=== PATIENT | female | born 1955 | race American Indian/Alaskan Native ===

== ENCOUNTER 2017-12-06 08:38 | Day surgery (SDC) | payer OTHER ==
[2017-12-05 09:41] LABS: Basophils % (Auto) 0.4 % (0.0-1.8); Eosinophils % (Auto) 0.8 % (0.0-4.3); Hematocrit 35.4 % (30.3-42.9); Hemoglobin 11.9 gm/dl (10.1-14.3); Lymphocytes # (Auto) 2.2 K/mm3 (1.2-5.4); Lymphocytes % (Auto) 44.8 % (13.4-35.0); Mean Corpuscular HGB Conc 34 % (30-34); Mean Corpuscular Hemoglobin 28 pg (28-32); Mean Corpuscular Volume 83 fl (79-97); Monocytes # (Auto) 0.5 K/mm3 (0.0-0.8); Monocytes % (Auto) 10.7 % (0.0-7.3); Platelet Count 251 K/mm3 (140-440); Red Blood Count 4.27 M/mm3 (3.65-5.03); Red Cell Distribution Width 14.3 % (13.2-15.2)
--- NOTE | 2017-12-05 09:46 | Anesthesia Consultation ---
Anesthesia Consult and Med Hx Date of service: 12/06/17 - Airway Anesthetic Teeth Evaluation: Good ROM Head & Neck: Adequate Mental/Hyoid Distance: Adequate Mallampati Class: Class II Intubation Access Assessment: Probably Good - Pulmonary Exam CTA: Yes - Cardiac Exam Cardiac Exam: RRR - Pre-Operative Health Status ASA Pre-Surgery Classification: ASA2 Proposed Anesthetic Plan: General - Cardiovascular System Hx Hypertension: Yes (x 5-6 yrs) Hx Heart Murmur: Yes - Central Nervous System Hx Psychiatric Problems: No - Other Systems Hx Cancer: No Hx Obesity: Yes - Additional Comments Anesthesia Medical History Comments: Preop assesment done and consent obtained by Dr. Simmons
[2017-12-05 09:54] LABS: BUN/Creatinine Ratio 16; Blood Urea Nitrogen 13 mg/dL (7-17); Calcium 9.5 mg/dL (8.4-10.2); Hemolysis Index 6
--- NOTE | 2017-12-05 17:54 | History and Physical Report ---
History of Present Illness Date of examination: 12/02/17 Chief complaint: Abnormal finding on imaging of genitourinary tract History of present illness: Past History : 1 Term Births: 1 Living Children: 1 # 1 Delivery date: 1985 Delivery type: weight: 9-2 [employer] History Operations: [employer] Surgery:ovarian cystectomy(L) umbilical hernia repair 2005 Abnormal PAP: negative Infection History HIV Risk Eval: no Hx of STD: None Active Medications (reviewed today): TRAVATAN Z SOLUTION (TRAVOPROST SOLN) CO Q 10 CAPSULE (COENZYME Q10 CAPS) EVENING PRIMROSE OIL CAPSULE (EVENING PRIMROSE OIL CAPS) CALCIUM 600+D PLUS MINERALS TABLET (CALCIUM CARBONATE-VIT D-MIN TABS) HYDROCHLOROTHIAZIDE 25 MG ORAL TABLET (HYDROCHLOROTHIAZIDE) 1 po qd CRESTOR 10 MG ORAL TABLET (ROSUVASTATIN CALCIUM) ZYRTEC ALLERGY TABLET (CETIRIZINE HCL TABS) MULTIVITAMIN ADULT ORAL TABLET CHEWABLE (MULTIPLE VITAMINS-MINERALS) Current Allergies (reviewed today): No known allergies Past Medical History: Reviewed history from 06/10/2017 and no changes required: Hyperlipidemia Hypertension glaucoma osteopenia Diffuse Cystic mastopathy (B) Dr. Marie Past Surgical History: Reviewed history from 04/17/2010 and no changes required: [employer] Surgery:ovarian cystectomy(L) umbilical hernia repair 2005 Family History Summary: Reviewed history Last on 06/10/2017 and no changes required:12/05/2017 Aunt - Has Family History Breast Cancer - maternal - Entered On: 09/01/2016 Aunt - Has Family History of Endometrial Cancer - maternal, different aunt - Entered On: 09/01/2016 Cousin (female) - Has Family History of Small Bowel Cancer - Entered On: 2015 Other family member - Has No Family History of Biliary Tract Cancer - Entered On : 09/01/2016 Other family member - Has No Family History of Brain Cancer - Entered On: 2015 Other family member - Has No Family History of Colon Cancer - Entered On: 2015 Other family member - Has No Family History of DVT/PE on OCP - Entered On: 09/01 Other family member - Has No Family History of Kidney/Urinary Tract Cancer - Entered On: 09/01/2016 Other family member - Has No Family History of Ovarvian Cancer - Entered On: Other family member - Has No Family History of Pancreatic Cancer - Entered On: 09/01/2016 Other family member - Has No Family History of Stomach Cancer - Entered On: General Comments - FH: Family History Breast Cancer Maternal aunt menopause, Cousin w/ small bowel cancer No Family History of Ovarian Cancer Maternal aunt endometrial cancer, different sister, menopause Social History: Reviewed history from 06/10/2017 and no changes required: Patient is Smoking History: Patient has never smoked. Risk Factors: Mammogram History: Date of Last Mammogram: 08/21/2016 PAP Smear History: Date of Last PAP Smear: 06/10/2017 Previous Tobacco Use: Signed On - 08/26/2017 Smoked Tobacco Use: Never smoker Smokeless Tobacco Use: Never Passive smoke exposure: no Drug use: no HIV high-risk behavior: no Previous Alcohol Use: Signed On - 08/26/2017 Alcohol use: no Exercise: no Seatbelt use: 100 % Colonoscopy History: Date of Last Colonoscopy: 08/19/2006 Mammogram History: Date of Last Mammogram: 08/21/2016 PAP Smear History: Date of Last PAP Smear: 06/10/2017 Review of Systems General Denies fever, chills, sweats, anorexia, fatigue, weakness, malaise, weight loss and sleep disorder. Denies vaginal discharge, incontinence, dysuria, hematuria, urinary frequency, amenorrhea, menorrhagia, abnormal vaginal bleeding, pelvic pain, genital sores, decreased libido, painful periods, painful sex, urinary urgency, hot flashes, vaginal dryness, vaginal itching and vaginal odor. CV Denies chest pains, palpitations, syncope, dyspnea on exertion, orthopnea, PND and peripheral edema. Resp Denies cough, dyspnea at rest, excessive sputum, hemoptysis, wheezing and pleurisy. GI Denies nausea, vomiting, diarrhea, constipation, change in bowel habits, abdominal pain, melena, hematochezia, jaundice, gas/bloating, indigestion/ heartburn, dysphagia and odynophagia. Endo Denies cold intolerance, heat intolerance, polydipsia, polyphagia, polyuria and unusual weight change. Breast Denies left breast lump, right breast lump, nipple discharge, bloody discharge from nipple, breast pain, abnormal mammogram and breast enlargement. MS Denies back pain, joint pain, joint swelling, muscle cramps, muscle weakness, stiffness, arthritis, sciatica, restless legs, leg pain at night and leg pain with exertion. Derm Denies rash, itching, dryness and suspicious lesions. Neuro Denies paralysis, paresthesias, headache, seizures, tremors, vertigo, transient blindness, frequent falls, frequent headaches and difficulty walking. Psych Denies depression, anxiety, irritability and mood swings. Eyes Denies blurring, diplopia, irritation, discharge, vision loss, eye pain and photophobia. ENT Denies earache, ear discharge, tinnitus, decreased hearing, nasal congestion, nosebleeds, sore throat and hoarseness. Allergy Denies urticaria, allergic rash, hay fever and recurrent infections. Heme Denies abnormal bruising, bleeding and enlarged lymph nodes. Physical Exam Appearance: well developed, well nourished, no acute distress Other Exams Lungs: no rales, rhonchi, or wheezes Heart: S1, S2, no murmur, rub, or gallop Abdomen: soft, non-tender, no masses Skin: no ulcers, xanthomas Extremities: normal alignment, no joint enlargement, crepitus, masses or tenderness; normal tone and strength Genitourinary Exam Vagina: atrophic vaginitis Cervix: normal appearance, no lesions, no discharge Uterus: normal position, midline, mobile Adnexa: no masses or tenderness Impression & Recommendations: Problem # 1: Imaging of genitourinary system abnormal (ICD-793.5) (DVR66-C49.8) Patient has been reassured that the findings on US and EMB are benign however she persists in wanting to have the area further evaluation therefore desires to proceed with hysteroscopy with D&C and other indicated procedures Consent reviewed and signed . Possible laparoscopy or laparotomy explained to patient. The risks and alternatives for this surgery were reviewed with the patient. She was informed of possible bleeding, infection, injury to bowel, bladder, ureters or other adjacent organs. The patient was instructed/informed the following: The normal length of hospital stay for this procedure. Nothing to eat or drink after midnight the evening prior to surgery. Clear liquids for dinner the night prior to surgery Pre-op instruction sheets given. Wound care instructions given. Infection precautions reviewed, patient to call for any signs or symptoms of infection. The usual discomforts associated with this procedure were detailed. Proper use of pain medicines was reviewed. Patient was given ample opportunity to have all her questions answered before signing informed consent. Medications and Allergies Allergies Allergy/AdvReac Type Severity Reaction Status Date / Time No Known Allergies Allergy Unverified 12/02/17 11:40 Home Medications Medication Instructions Recorded Confirmed Last Taken Type Cetirizine HCl [Zyrtec] 10 mg PO DAILY 12/02/17 12/02/17 Unknown History Hydrochlorothiazide [HCTZ] 25 mg PO DAILY 12/02/17 12/02/17 Unknown History Rosuvastatin (Nf) [Crestor] 10 mg PO QHS 12/02/17 12/02/17 Unknown History Active Meds: Active Medications Cefazolin Sodium (Ancef/Sterile Water 2 Gm/20 Ml) 2 gm in 20 mls @ 80 mls/hr IV PREOP NR; Protocol Exam Vital Signs Temp Pulse Resp BP 97.9 F 80 20 140/80 12/05/17 09:10 12/05/17 09:10 12/05/17 09:10 12/05/17 09:10 Results - Labs 12/05/17 09:20 12/05/17 09:20 Abnormal lab results 12/05/17 12/05/17 Range/Units 09:20 09:20 Lymph % (Auto) 44.8 H (13.4-35.0) % Osborne % (Auto) 10.7 H (0.0-7.3) % Chloride 97.1 L (98-107) mmol/L Carbon Dioxide 31 H (22-30) mmol/L Glucose 113 H (65-100) mg/dL Diabetes panel 12/05/17 Range/Units 09:20 Sodium 140 (137-145) mmol/L Potassium 3.9 (3.6-5.0) mmol/L Chloride 97.1 L (98-107) mmol/L Carbon Dioxide 31 H (22-30) mmol/L BUN 13 (7-17) mg/dL Creatinine 0.8 (0.7-1.2) mg/dL Glucose 113 H (65-100) mg/dL Calcium 9.5 (8.4-10.2) mg/dL Calcium panel 12/05/17 Range/Units 09:20 Calcium 9.5 (8.4-10.2) mg/dL Pituitary panel 12/05/17 Range/Units 09:20 Sodium 140 (137-145) mmol/L Potassium 3.9 (3.6-5.0) mmol/L Chloride 97.1 L (98-107) mmol/L Carbon Dioxide 31 H (22-30) mmol/L BUN 13 (7-17) mg/dL Creatinine 0.8 (0.7-1.2) mg/dL Glucose 113 H (65-100) mg/dL Calcium 9.5 (8.4-10.2) mg/dL Adrenal panel 12/05/17 Range/Units 09:20 Sodium 140 (137-145) mmol/L Potassium 3.9 (3.6-5.0) mmol/L Chloride 97.1 L (98-107) mmol/L Carbon Dioxide 31 H (22-30) mmol/L BUN 13 (7-17) mg/dL Creatinine 0.8 (0.7-1.2) mg/dL Glucose 113 H (65-100) mg/dL Calcium 9.5 (8.4-10.2) mg/dL Assessment and Plan - Patient Problems (1) Abnormal findings on diagnostic imaging of other specified body structures Status: Acute
[~2017-12-06 08:38] MED LIST: ANCEF/STERILE WATER 2 GM/20 ML 2 GM/20 ML SYRINGE IV NR; NACL 0.9% IR ONE
[2017-12-06] MEDS ORDERED: NACL 0.9% 1000 ML 1,000 ML IV SCH (10:00)
[2017-12-06] MEDS ORDERED: DIPRIVAN 10 MG/ML IV ONE (10:01)
[2017-12-06] MEDS ORDERED: VERSED ONE (10:01)
[2017-12-06] MEDS ORDERED: SUBLIMAZE ONE (10:03)
[2017-12-06] MEDS ORDERED: ZOFRAN IV PRN (10:25)
--- NOTE | 2017-12-06 10:25 | Anesthesia Day of Surgery ---
Anesthesia Day of Surgery - Day of Surgery Patient Examined: Yes Patient H&P Reviewed: Yes Patient is NPO: Yes
[2017-12-06] MEDS ORDERED: DECADRON ONE (10:26)
[2017-12-06] MEDS ORDERED: XYLOCAINE MPF 2% ONE (10:30)
--- NOTE | 2017-12-06 11:11 | Discharge Summary ---
Providers - Providers Date of discharge: 12/06/17 Attending physician: MAGALI FREEMAN Primary care physician: DOREEN KEMP Hospitalization Condition: Good Procedures: Hysteroscopic myomectomy with dilation and curettage Hospital course: uncomplicated Disposition: - TO HOME OR SELFCARE - Discharge Diagnoses (1) Abnormal findings on diagnostic imaging of other specified body structures Status: Acute Core Measure Documentation - Palliative Care Palliative Care/ Comfort Measures: Not Applicable - Core Measures Any of the following diagnoses?: none Exam - Constitutional Vitals: Temp Pulse Resp BP Pulse Ox 97.6 F 72 20 140/67 100 12/06/17 09:45 12/06/17 09:45 12/06/17 09:45 12/06/17 09:45 12/06/17 09:45 General appearance: Present: no acute distress - Respiratory Respiratory effort: normal - Cardiovascular Rhythm: regular Plan Follow up with: DOREEN KEMP MD [Primary Care Provider] - 7 Days MAGALI FREEMAN MD [Staff Physician] - (as scheduled)
--- NOTE | 2017-12-06 11:14 | Post Operative Note ---
Pre-op diagnosis: Endometrial mass Post-op diagnosis: same Procedure: H'scopic myomectomy D&C Anesthesia: MAC Surgeon: MAGALI FREEMAN Estimated blood loss: minimal Pathology: list Specimen disposition: to lab Condition: stable Disposition: PACU
[2017-12-06] MEDS: DILAUDID IV PRN ×2 (11:42→11:53)
[2017-12-06 13:47] VITALS: BP 157/76
--- NOTE | 2017-12-06 16:11 | Post Anesthesia Evaluation ---
- Post Anesthesia Evaluation Patient Participated: Yes Airway Patent: Yes Stable Respiratory Function: Yes Nausea/Vomiting: No Temp > 96.8F: Yes Pain Manageable: Yes Adequeate Hydration: Yes Anesthesia Complications: No
--- NOTE | 2017-12-06 17:23 | Operative Report ---
Operative Report Operative Report: Date: 12/06/2017 Preoperative diagnosis: 1. Endometrial mass Postoperative diagnosis: 1. Endometrial mass . Procedure: 1. Cervical dilation 2. Hysteroscopic excision of endometrial mass using the Myosure device 3. Uterine curettage Surgeon: Monica Elias MD Human Resources Temp: [] Anesthesiologist: Katlyn Florez M.D. Anesthesia: Gen. endotracheal anesthesia EBL: Minimal Findings: Large pedunculated intracavitary fibroid Distention medium: Saline Fluid deficit: 500 mL Procedure: After risks, benefits, complications, consequences and alternatives for this procedure were explained, and patient voiced her understanding and her desire to proceed, she is taken to the OR and placed in the supine position. General anesthesia was induced. She was placed in the dorsolithotomy position. Exam under anesthesia was unremarkable. She was then prepped and draped in usual sterile fashion. Timeout was performed. The bladder was drained approximately 100 mL of clear yellow urine. A operative speculum was introduced was introduced into the vagina. The anterior lip of the cervix was grasped with single-tooth tenaculum and the uterus was sounded to 7 cm. The cervix was progressively dilated to allow the operative hysteroscope. The above findings were noted. Using the Myosure device hysteroscopic excision of the mass was performed. Uterine curettage was then performed. The hysteroscope was introduced again into the uterus. There is no evidence of perforation and hemostasis was noted. The procedure was ended. The speculum and the tenaculum were removed. Hemostasis was noted. No bleeding from the tenaculum site was noted. Patient tolerated procedure well and taken to recovery room in stable condition
== END 2017-12-06 13:25 | disposition home or self-care (01) ==
LOC: OR 08:38
PROVIDERS: ATTEND Obstetrics & Gynecology
DX: D25.9 Leiomyoma of uterus, unspecified (principal); M85.80 Other specified disorders of bone density and structure, unspecified site; I10 Essential (primary) hypertension; E66.9 Obesity, unspecified; E78.5 Hyperlipidemia, unspecified; Z68.30 Body mass index [BMI] 30.0-30.9, adult
CPT/HCPCS: 36415; 58561; 80048; 82962; 85025; 86850; 86900; 86901; 88305; A4217; C1782; J0690; J1100; J1170; J2250; J2405; J2704; J3010; J7030

== ENCOUNTER 2022-03-11 10:32 | Outpatient (CLI) | payer MEDICARE, OTHER ==
--- NOTE | 2022-03-11 11:53 | Mammography Report ---
DEXA BONE DENSITY SCAN INDICATION / CLINICAL INFORMATION: N95.1. 66 years Female COMPARISON: None available. LUMBAR SPINE, L1-L4: - Bone mineral density (BMD) = 0.937 g/cm2. - T-score = -1.0 - Change (%) since most recent prior (if available): None available. LEFT HIP, NECK : - Bone mineral density (BMD) = 0.769 g/cm2. - T-score = -0.7 - Change (%) since most recent prior (if available): None available. IMPRESSION: 1. WHO Classification: Normal bone density. Fracture Risk: Not Increased. 2. 10-Year Fracture Risk (FRAX) = Major Osteoporotic Not reported.% / Hip: Not reported.% FRAX generally not reported for patients with normal or osteoporotic BMD, in [id number] ant ents younger than age 50, or in patients undergoing pharmacotherapy BMD Reporting Guidelines (ISCD, 2015) BMD Reporting in Postmenopausal Women and in Men Age 50 and Older - T-scores are preferred. - The WHO densitometric classification is applicable. BMD Reporting in Females Prior to Menopause and in Males Younger Than Age 50 - Z-scores, not T-scores, are preferred. This is particularly important in children. - A Z-score of -2.0 or lower is defined as below the expected range for age, and a Z-score above -2.0 is within the expected range for age. - Osteoporosis cannot be diagnosed in men under age 50 on the basis of BMD alone. - The WHO diagnostic criteria may be applied to women in the menopausal transition. http://www.iscd.org/official-positions/9622-iktc-lmmstfpb-positions-adult/ Signer Name: Chandler Gonzalez MD Signed: 03/11/2022 11:49 AM Workstation Name: [id number]
== END 2022-03-11 10:33 | disposition home or self-care (01) ==
LOC: MAMMO 10:32
PROVIDERS: ATTEND Obstetrics & Gynecology
DX: N95.1 Menopausal and female climacteric states (principal); Z13.820 Encounter for screening for osteoporosis
CPT/HCPCS: 77080